=== PATIENT | male | born 1935 | race Caucasian/White ===

== ENCOUNTER 2022-05-13 11:40 | Emergency (ER) | payer MEDICARE ==
[2022-05-13] MEDS ORDERED: PREDNISONE50 MG PO (12:25)
[2022-05-13] MEDS ORDERED: ATENOLOL25 MG PO (12:25)
[2022-05-13 14:44] VITALS: BP 167/85
== END 2022-05-13 15:03 | disposition home or self-care (01) ==
LOC: ED 11:40
DX: S60.561A Insect bite (nonvenomous) of right hand, initial encounter (principal); I10 Essential (primary) hypertension; J44.9 Chronic obstructive pulmonary disease, unspecified; F17.210 Nicotine dependence, cigarettes, uncomplicated; W57.XXXA Bitten or stung by nonvenomous insect and other nonvenomous arthropods, initial encounter